=== PATIENT | female | born 1985 | race Caucasian/White ===

== ENCOUNTER 2024-05-15 01:03 | Emergency (ER) | payer OTHER ==
[~2024-05-15] VITALS: Ht 165.1 cm; Wt 74.0 kg
[2024-05-15 01:08] VITALS: PULSE 100; RESP 18; O2SAT 100
[2024-05-15 01:09] VITALS: BP 128/75; TEMP 36.7; O2SAT 99
[2024-05-15] MEDS: DIPHENHYDRAMINE 12.5MG/5ML UDC PO ONE (01:43)
[2024-05-15] MEDS: FAMOTIDINE 20MG TABLET PO ONE (01:43)
[2024-05-15] MEDS ORDERED: CEPH500C2 MT (02:44)
== END 2024-05-15 02:57 | disposition home or self-care (01) ==
LOC: ER 01:21
DX: T78.40XA Allergy, unspecified, initial encounter (principal); F41.9 Anxiety disorder, unspecified; Z98.890 Other specified postprocedural states; Z88.1 Allergy status to other antibiotic agents; X58.XXXA Exposure to other specified factors, initial encounter
CPT/HCPCS: 99283; Q0163